=== PATIENT | female | born 1955 | race Two or more races ===

== ENCOUNTER 2017-08-27 09:20 | Outpatient (CLI) | payer OTHER | END 2017-08-27 10:03 | disposition home or self-care (01) | LOC: SONOGRAMA 09:20 | DX: E04.2 Nontoxic multinodular goiter (principal) ==

== ENCOUNTER 2019-04-27 05:51 | Day surgery (SDC) | payer OTHER ==
[~2019-04-27 05:51] MED LIST: COZAAR25 MG PO; LOPID; LOPRESSOR HCT1 EACH PO; PRILOSEC OTC20 MG PO; PROZAC20 MG PO; RESTORIL30 M1 PO
[2019-04-27] MEDS ORDERED: PERCOCET 5-3251 EACH PO (11:13)
== END 2019-04-27 15:20 | disposition home or self-care (01) ==
LOC: CIR.AMB 05:51 → ADM 11:00 → CIR.AMB 15:20
DX: E04.1 Nontoxic single thyroid nodule (principal)